=== PATIENT | male | born 1980 | race Caucasian/White ===

== ENCOUNTER 2020-06-02 04:51 | Emergency (ER) | payer OTHER ==
[~2020-06-02] VITALS: Ht 175.3 cm; Wt 90.0 kg
[2020-06-02 04:51] VITALS: BP 165/82
[2020-06-02] MEDS ORDERED: MORPHINE SULFATE 4 MG/ML DISP.SYRIN. IM ONE (05:30)
[2020-06-02] MEDS ORDERED: IBUPROFEN 400 MG TABLET. PO ONE (05:30)
[2020-06-02] MEDS ORDERED: MORPHINE SULFATE 2 MG/ML DISP.SYRIN. IM ONE (05:30)
[2020-06-02] MEDS ORDERED: HYDR-2155 PO (05:32)
[2020-06-02] MEDS ORDERED: MORPHINE SULFATE 4 MG/ML DISP.SYRIN. ONE (05:33)
[2020-06-02] MEDS ORDERED: MORPHINE SULFATE 2 MG/ML DISP.SYRIN. ONE (05:33)
[2020-06-02] MEDS ORDERED: IBUPROFEN 800 MG TABLET. PO ONE ×2 (05:33→05:45)
--- NOTE | 2020-06-02 05:33 | PHYS DOC ---
Adult General HPI HPI Patient is a 39-year-old male who presents with right knee pain. 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 States over the last couple of days has gotten a little more red, and is tender to the touch on the top. States he went to an urgent care yesterday and was started on antibiotics. States that he has had not quite 1 days worth so far. States he had had anything for the pain except for Tylenol. Denies any fevers, chest pain, shortness of breath, abdominal pain, nausea, vomiting. Denies any numbness/weakness/tingling or decrease in range of motion. Review of Systems Review of Systems Review of systems otherwise unremarkable except noted in HPI Physical Exam Physical Exam Constitutional: Well developed, well nourished, no acute distress, non-toxic appearance. [] Cardiovascular: Sinus tachycardia Lungs & Thorax: Bilateral breath sounds clear to auscultation [] Skin: Warm, dry, no erythema, no rash. [] Back: No tenderness, Extremities: Left side with no tenderness, no cyanosis, no clubbing, ROM intact, no edema. Right side is normal range of motion and is neurovascularly intact. Patient does appear to have some redness and tenderness on the medial portion of the left leg with no abscess or fluctuance noted. No obvious knee effusion. [] Neurologic: Alert and oriented X 3, normal motor function, normal sensory function, no focal deficits noted. [] Psychologic: Affect normal, judgement normal, mood normal. [] EKG EKG [] Radiology/Procedures Radiology/Procedures [] Heart Score C/O Chest Pain: No Risk Factors: Risk Factors: DM, Current or recent (<one month) smoker, HTN, HLP, family history of CAD, obesity. Risk Scores: Risk Factors: DM, Current or recent (<one month) smoker, HTN, HLP, family history of CAD, obesity. Course & Med Decision Making Course & Med Decision Making Patient is a 39-year-old male who presents with right knee pain Vital signs notable for tachycardia. Physical exam noted above. Patient given pain medication in the ED. Advised to continue his antibiotics that he started yesterday afternoon as prescribed. Sent home with pain medicine and pain regimen. Given contact information for local PCP. Advised to follow-up with primary care physician first thing this morning to establish care and set up a follow-up visit in the next week for a wound check and discuss need for any further evaluation or diagnostics. Gave strict return precautions to the ED. Family grateful, verbalized understanding and agreed with plan of discharge. [] Dragon Disclaimer Dragon Disclaimer This electronic medical record was generated, in whole or in part, using a voice recognition dictation system. Departure Departure: Impression: Primary Impression: Cellulitis Disposition: 01 DC HOME SELF CARE/HOMELESS Condition: GOOD Referrals: NICOLE HODGES MD Patient Instructions: Cellulitis, [id number], RICE - Routine Care for Injuries Additional Instructions: Please read all of your attached information carefully. Please take your antibiotics as prescribed. Please begin an ibuprofen regimen as discussed. You can use ice as well. Please take your prescription pain medicine as prescribed. Please call your primary care physician or the primary physician at the number provided to establish care to discuss ED visit and set up a follow- up within a week for a wound check. Please come back to the emergency department immediately with new or concerning symptoms as discussed including but not limited to extreme pain controlled by your pain medication, fevers measured over 100.4 with a thermometer, or nausea and vomiting that will not stop. Scripts Hydrocodone Bit/Acetaminophen (HYDROCODONE-APAP 5-325 ) 1 Each Tablet 1 TAB PO PRN Q6HRS PRN for PAIN for 3 Days, #12 TAB 0 Refills Prov: ELAINA STREET MD 06/02/[address] MD Jun 02, 2020 05:33
[2020-06-02] MEDS ORDERED: IBUPROFEN 600 MG TABLET. PO ONE (05:45)
== END 2020-06-02 06:00 | disposition home or self-care (01) ==
LOC: ER 04:51
DX: L03.115 Cellulitis of right lower limb (principal)
CPT/HCPCS: 96372; 99284; J2270